=== PATIENT | male | born 1975 | race Caucasian/White ===

== ENCOUNTER → 2016-09-19 | Outpatient (CLI) | payer OTHER ==
[~2016-09-19] MED LIST: PRED20TA PO
--- NOTE | 2016-09-20 06:01 | PAP/PSG TECHNICIAN REPORT ---
[facility] Economics Teacher Polysomnogram Report Study name: None Report date: 09/20/2016 Study date: 09/19/2016 Referring Physician: Oliva Cohen M.D. Name: PINKY IVONNE P Interpreting Physician: Catrina Cohen M.D. Date of : 02/27/1957 Economics Teacher: Mar Burgess, PSGT. Sex: Male Age: 59 StudyType: PSG Weight: 185 lbs Height: 59 years, Height 5' 7" Neck Circum:14.5 inches BMI: 28.97 Medications: Requip xl 4 mg, Neurontin 300 mg, Epi-Pen, Ventolin, Patient History 41 Yr. old male in room 37, presents to the sleep lab for a diagnostic sleep study. Pt. states that he has restless sleep, hypersomulance and snoring. Wakes often during the night.Ess=18. Parameters Monitored NPSG: E1-M2, E2-M1, Fp1-M2, Fp2-M1, F3-M2, F4-M2, F4-M1, C3-M2, C4-M2, C4-M1, O1-M2, O2-M2, O2-M1, T3-M2, T4-M1, P3-M2, P4-M1, CHIN1, CHIN2, HR, EKG, Legs, PFLOW, SNOR, FLOW, CFLOW, Tidal Volume, THOR, ABDO, SpO2, PLTH, CPRESS, ETCO2 Wave, ETCO2, pH Sleep Architecture Sleep Stages Time at Lights Off 10:11:48 PM STAGES Time (min.) TST (%) Time at Lights On 5:12:18 AM Wake 39.0 -- Total Recording Time (TRT) 422.50 min. N1 15.0 4 Total Sleep Period (TSP) 409.0 min. N2 258.0 68 Total Sleep Time (TST) 381.5min. N3 0.0 0 Awake Time 41.0 min. REM 108.5 28 Wake after Sleep Onset 32.5 min. Sleep Efficiency (SE) 91 % Sleep Onset Latency (PRAVEEN) 6.5 min. Number of Stage 1 Shifts None Awakenings 11 Stage Changes 34 Number of REM periods 5 REM 108.5 28 REM Latency 121.0 min. NREM 273.0 72 Body Position Analysis Supine Right Left Side Prone Vertical Total Sleep Time (min.) 126.7 102.7 166.3 269.08 0.0 0.0 Total Sleep Time (%) 29% 27% 44% 71 0% N/A% Total Sleep Time REM (min.) 29.5 13.5 65.5 None 0.0 0.0 Total Sleep Time NREM (min.) 82.9 89.2 100.8 None 0.0 0.0 Intermittent Wake (min.) 14.3 0.0 24.7 None 0.0 0.0 Total Sleep Period (%) 29% None None None None None Arousals Myoclonus (PLM) * Events Count Index Events Count Index Spontaneous 45 7 Events Awake (PLMW) 1 1.5 Respiratory 1 0.2 Events Asleep w/ Arousal (PLMA) 9 1.4 PLM 9 1 Events Asleep w/o Arousal (PLMS) 170 26.7 Snoring 9 1 Total Asleep 179 28.2 Total 63 10 Total 180 26 Respiratory Analysis * CA OA MA CH H RERA Total Count 0 0 0 0 7 0 7 Index 0.0 0.0 0.0 0 1.1 0 1.1 Mean Duration 0.0 0.0 0.0 0.00 14.6 0.0 14.6 Longest Duration 0.0 0.0 0.0 0.00 0.0 0.0 21.6 Respiratory Event Summary Total Supine ~Supine Right Left Prone REM NREM Apneas Count 0 0 0 0 0 N/A 0 0 Index 0.0 0 0 0.0 0.0 N/A 0 0 Hypopneas (4% Desat) Count 7 4 3 1 2 N/A 1 6 Index 1.1 2.1 1 0.6 0.7 N/A 0.6 1.3 Apneas & All Hypopneas Count 7 4 3 1 2 N/A 1 6 Index 1.1 2 1 1 1 N/A 0.6 1.3 Respiratory Events (Critical Care Physician+All Hyp+RERA) Count 7 4 3 1 2 N/A 1 6 Index 1.1 2 1 0.6 0.7 N/A 0.6 1.3 Respiratory Related Arousal Count 1 4 1 1 0 N/A 0 1 Index 0.2 0 0 1 0 N/A 0 0 Snoring Analysis Supine Right Left Prone REM NREM Total Snore duration 9.6 min Snores count 153 24 305 N/A 146 336 482 Snore mean duration 1.2 Sec Snores index 82 14 110 N/A 80.7 73.8 75.8 TST with snoring (%) 2.5% SpO2 Analysis Total REM NREM Awake <50% 0.0 min. 0.0 min. 0.0 min. 0.0 min. 51 - 60% 0.0 min. 0.0 min. 0.0 min. 0.0 min. 61 - 70% 0.0 min. 0.0 min. 0.0 min. 0.0 min. 71 - 80% 0.1 min. 0.0 min. 0.0 min. 0.1 min. 81 - 90% 45.3 min. 31.1 min. 8.8 min. 5.5 min. 91 - 100% 368.7 min. 76.0 min. 261.5 min. 31.2 min. Average 93 92 93 93 Minimum SpO2 77 84 87 77 Desaturation Event Index 2.1 1.7 2.6 0.0 # Desat. Events below 89% 3 1 2 N/A Time(%) with Saturation below 89% 4.4 4.0 0.3 0.1 Time(min.) with Saturation below 89% 18.1 16.7 1.1 0.3 Heart Rate Analysis End Tidal CO2 Analysis Min (bpm) Max (bpm) Average (bpm) TSP (mins) % of TSP Awake 44 180 73 Above 55 mmHg 0.0 0.0 NREM 58 127 70 50-55 mmHg 0.0 0.0 REM 60 82 68 45-50 mmHg 10.9 2.8 Overall 58 127 69 40-45 mmHg 304.7 79.9 35-40 mmHg 65.1 17.1 30-35 mmHg 0.8 0.2 Average ETCO2 0.1 Supplemental O2 Values Minimum O2 level: None Value Start Time End Time Economics Teacher Comments PSG Study Mr. Andres slept in the right, left, and supine positions. No cardiac arrhythmia. PLM's noted. No bruxism noted. Snoring was noted and scored as a 2 on a scale of 1 through 5. (0=no snoring, 5=snoring loud enough to be heard through a closed door or down the [address] way) Mr. Andres awoke to use the restroom zero times during the night. Mr. Andres stated, I did not sleep as well as I do when I am in my own bed. The final report will be interpreted and signed by a sleep physician. The completed physician report will then be placed in the patient medical record. Therapy (cm H2O) 0 TIB (min.) 420.5 TST (min.) 381.5 Sleep Onset (min.) 6.5 REM Onset From Sleep (min.) 121.0 Sleep Efficiency % 91 Wakefulness (%) 9 Wakefulness (min.) 41.0 NREM 1 (%) 4 NREM 1 (min.) 15.0 NREM 2 (%) 68 NREM 2 (min.) 258.0 NREM 3 (%) 0 NREM 3 (min.) 0.0 REM (%) 28 REM (min.) 108.5 # Arousals 63 Arousal Index 10 # Snore 482 Snore Index 75.8 AHI 1.1 AHI Supine 2 AHI Non-Supine 1 NREM AHI 1.3 REM AHI 0.6 RDI 1.1 # Obstructive Apnea 0 # Central Apnea 0 # Mixed Apnea 0 # Hypopneas 7 RERAs 0 Total Respiratory Events 8 Time Below SpO2 89% (min.) 17.8 Mean NREM SpO2 (%) 93 Mean REM SpO2 (%) 92 Mean Sleep SpO2 (%) 93 Min NREM SpO2 (%) 87 Min REM SpO2 (%) 84 Position Supine (min.) 126.7 Position Non-supine (min.) 269.1 LM Index Sleep 28.2 LM Index NREM 34.7 LM Index REM 11.6 Mean Heart Rate (bpm) 69 Min Heart Rate (bpm) 58
--- NOTE | 2016-10-28 10:06 | POLYSOMNOGRAPH REPORT ---
REFERRING PERSON: Dr. Latasha Cohen. LENS FINISHER: Juana Burgess. Mr. Andres is a 59-year-old male, who presents to the sleep lab for a diagnostic sleep study. He has unfreshing sleep, hypersomnia, and snoring. He often wakes during sleep. His [place] sleepiness scale score on the evening of this study is 18. BMI is 28.97. Following the technical and digital specifications of the [place] [employer] (AASM) a standard diagnostic polysomnogram was performed monitoring EEG, EOG, EMG (chin and leg deviations), oxygen saturation, body position, digital video, respiratory effort and airflow. The sleep Stage and event scoring was based on the AASM Manual for the Scoring of Sleep and Associated Events 2007 edition. Apneas are defined as a drop in the peak thermal sensor excursion by >90% of baseline for at least 10 seconds. Hypopneas were scored using the 4% oxygen desaturation rule (4A-[employer]) and a decrease in the nasal pressure excursions by >30% of baseline for at least 10 seconds. Respiratory effort-related arousal (RERA's) is defined as a sequence of breaths lasting at least 10 seconds characterized by increasing respiratory effort or flattening of the nasal pressure waveform leading to an arousal from sleep when the sequence of breaths does not meet criteria for an apnea or hypopnea. Apnea Hypopnea index (AHI) is defined as the number of apneas and hypopneas occurring in an hour of sleep. Respiratory disturbance index (RDI) is defined as the number of apneas, hypopneas, and RERA's occurring in an hour of sleep. Mr. Andres's total sleep period time was 409 minutes. Total sleep time was 381.5 minutes with sleep efficiency 91%. Latency to sleep onset was 6.5 minutes. Wake after sleep onset was 32.5 minutes. Total non-REM sleep time was 273 minutes. He spent 4% of that time in N1 sleep, 68% in N2 sleep and no time in N3 sleep. REM latency was 121 minutes. Total REM sleep time was 108.5 minutes or 28% of total sleep time. There were 63 cortical arousals from sleep. Nine of these arousals were due to snoring, 9 were due to periodic limb movements of sleep, 1 was due to respiratory event and the remainder were spontaneous. There were 179 periodic limb movements noted on this test. Limb movement index was 28.2. Limb movement with arousal index was 1.4. There were no central, obstructive or mixed apneas on this test. There were 7 hypopnea. Apnea-hypopnea index was normal at 1.1. 482 snoring events were recorded. Total sleep time with snoring was 2.5%. Mean saturation was 93% with desaturations to 77%. Saturations were less than 89% for 18.1 minutes of recorded time. There was no cardiac ectopy on this study. Heart rates ranged from a low of 58 beats per minute to a high of 127 beats per minute. End-tidal CO2 was recorded on this test. End-tidal CO2s were between 45 and 50 mmHg for 2.8% of total sleep period time, between 40 and 45 mmHg for 79.9%, between 35 and 40 mmHg for 17.1% and between 30 and 35 mmHg for 0.2% of total sleep period time. IMPRESSION AND PLAN: A 59-year-old male without evidence of sleep disordered breathing, bruxism, parasomnia or clinically significant periodic limb movements of sleep on this test. He does have mild nocturnal hypoxemia. Clinical correlation is needed. He may benefit from oxygen therapy at bed time. MTDD
== END | disposition home or self-care (01) ==
LOC: C.NEUR 21:00
PROVIDERS: ATTEND Family Medicine
DX: G25.81 Restless legs syndrome (principal); G47.10 Hypersomnia, unspecified; R06.83 Snoring